=== PATIENT | male | born 1980 | race Caucasian/White ===

== ENCOUNTER 2019-03-28 18:29 | Emergency (ER) | payer OTHER ==
[~2019-03-28] VITALS: Ht 177.8 cm; Wt 93.9 kg
[2019-03-28 21:31] VITALS: BP 127/82
== END 2019-03-28 21:34 | disposition home or self-care (01) ==
LOC: M.ERS 18:29
DX: F14.10 Cocaine abuse, uncomplicated (principal); R51 Headache; Z90.89 Acquired absence of other organs